=== PATIENT | female | born 1985 | race Caucasian/White ===

== ENCOUNTER 2018-06-07 14:41 | Emergency (ER) | payer OTHER ==
[2018-06-07] MEDS ORDERED: PROPARACAINE HCL OPTH 15ML BTL OPTH ONE ×2 (14:46→14:57)
--- NOTE | 2018-06-07 14:56 | Emergency Department Record ---
History of Present Illness - General Chief complaint: Eye Problem Stated complaint: LT EYE SWELLING Time Seen by Provider: 06/07/18 14:55 Source: Patient Mode of Arrival: Ambulatory Limitations: No limitations - History of Present Illness Initial comments: The patient is here due to L eye pain. She accidentally poked herself in the L eye almost 2 days ago while trying on sunglasses. She states the hard paper tag poked directly into the L eye and she had immediate pain. The L eye has been painful since with mild blurred vision. The patient has been flushing her eye out also. She did go to an in [place] and was told there was no scratch so she needed to come to the hospital. Her td is not UTD. chief complaint: Eye pain Onset/Timin -: Days(s) Onset Description: Sudden Location: Left eye Place: Home If Injury: Direct trauma Eye Symptoms: Burning, Itching, Pain, Redness Severity: Moderate Severity scale (1-10): 7 If Pain, Quality: Aching - Related Data Visual acuity (L) = 20/: 40 Visual acuity (R) = 20/: 20 With correction: No (glasses) Patient Tetanus UTD (within 5 yrs): No Home Medications Medication Instructions Recorded Confirmed Last Taken Sertraline HCl [Zoloft] 25 mg PO DAILY 06/07/18 06/07/18 1 Day Ago ~06/06/18 Allergies Allergy/AdvReac Type Severity Reaction Status Date / Time No Known Drug Allergies Allergy Verified 06/07/18 14:53 Travel Screening - Travel/Exposure Within Last 30 Days Have you traveled within the last 30 days?: No - Travel/Exposure Within Last Year Have you traveled outside the [place] in the last year?: No - Additonal Travel Details Have you been exposed to anyone with a communicable illness?: No - Travel Symptoms Symptom Screening: None Review of Systems Constitutional: Denies: Chills, Fever Past Medical History - SOCIAL HISTORY Smoking Status: Never smoker Alcohol Use: None Drug Use: None - RESPIRATORY Hx Respiratory Disorders: No - CARDIOVASCULAR Hx Cardio Disorders: No Comment:: renaults syndrome - NEURO Hx Neuro Disorders: No - GI Hx GI Disorders: No - Hx Genitourinary Disorders: No - ENDOCRINE Hx Endocrine Disorders: No - MUSCULOSKELETAL Hx Musculoskeletal Disorders: No - PSYCH Hx Psych Problems: No - HEMATOLOGY/ONCOLOGY Hx Hematology/Oncology Disorders: No Family Medical History Any Significant Family History?: Yes Physical Exam - General General Appearance: Alert, Oriented x3, Cooperative, No acute distress - Head Head exam: Atraumatic, Normocephalic, Normal inspection - Eye Eye exam: PERRL, Conjunctival injection (2+ L eye.), EOMI, Other (There is a linear abrasion over the central visual axis just medial to the midline. The anterior chamber is clear and quiet with no hyphema.). negative: Normal appearance, Nystagmus, Periorbital swelling, Periorbital tenderness, Scleral icterus With correction: No (glasses) Image of Eyes: 1 - Abrasion. - ENT ENT exam: Normal exam, Mucous membranes moist, Normal external ear exam, Normal orophraynx, TM's normal bilaterally Course Vital Signs 06/07/18 14:45 Temperature 98.6 F Pulse Rate 92 H Respiratory 16 Rate Blood Pressure 106/78 Pulse Ox 99 - Reevaluation(s) Reevaluation #1: I did explain to the patient she is to use the Emycin ointment 4 times a day for 5 days and is to have the L eye rechecked on Saturday. She is to return to the ER for any worsening symptoms. I did offer to place a consult to Dr. Diamond but the patient would like to find someone closer to home. 06/07/18 15:15 Disposition Disposition: Discharge Clinical Impression: Corneal abrasion, left Qualifiers: Encounter type: initial encounter Qualified Code(s): S05.02XA - Injury of conjunctiva and corneal abrasion without foreign body, left eye, initial encounter Disposition: Home, Self-Care Condition: (2) Stable Instructions: Corneal Abrasion (ED) Additional Instructions: Please use the Emycin eye ointment 4 times a day for 5 days. Try to keep the L eye closed as much as possible. Please see an eye doctor on Saturday for recheck. Return to the ER for any worsening symptoms, pain, blurred vision or swelling. Forms: Patient Portal Access Time of Disposition: 15:18 Quality - Quality Measures Quality Measures: N/A - Blood Pressure Screening View Details: Yes Does Patient Have Any of the Following: No Blood Pressure Classification: Normal BP Reading Systolic Measurement: 106 Diastolic Measurement: 78 Screening for High Blood Pressure: < Normal BP, F/U Not Required > [[id number]]
[2018-06-07] MEDS ORDERED: ERYTHROMYCIN OPTH OINT 3.5GM OPTH ONE (15:10)
[2018-06-07] MEDS ORDERED: Diph,Pert(Acell),Tet Vac 0.5 ML SYR IM ONE (15:13)
== END 2018-06-07 15:29 | disposition home or self-care (01) ==
LOC: ER 14:41
DX: S05.02XA Injury of conjunctiva and corneal abrasion without foreign body, left eye, initial encounter (principal); W22.8XXA Striking against or struck by other objects, initial encounter; Y92.009 Unspecified place in unspecified non-institutional (private) residence as the place of occurrence of the external cause
CPT/HCPCS: 90715; 99283